=== PATIENT | female | born 1950 | race Caucasian/White ===

== ENCOUNTER 2019-12-04 06:37 | Outpatient (CLI) | payer MEDICARE, SELFPAY ==
--- NOTE | ~2019-12-04 | CT_ITS ---
EXAMINATION: CT abdomen pelvis w con DATE: 12/04/2019 07:18 INDICATION: Right renal cell carcinoma restaging TECHNIQUE: Computed tomography (CT) of the abdomen and pelvis was performed with 100 cc Omnipaque 350 intravenous contrast. Automated exposure control and iterative reconstruction technique were employe d. Exam dose: 732.59 mGy-cm total exam DLP. COMPARISON: 08/23/2018 CT abdomen pelvis FINDINGS: Cardiomegaly. No pericardial or pleural effusion. There is mild discoid atelectasis and/or scarring in the lower lung zones. No consolidation is noted . Small sliding hiatal hernia. Diffuse hepatic steatosis. No hepatic, splenic, pancreatic, adrenal or left renal space occupying ma ss lesion is detected. Status post right nephrectomy; no recurrent mass lesion or lymphadenopathy is detected. No urinary tract calculus or hydroureteronephrosis. There is atherosclerotic calcification of the abdominal aorta and aortic branches. Normal appendix. No bowel obstruction or intraperitoneal free air. Diffuse idiopathic skeletal hyperostosis of the lower thoracic spine. The uterus, adnexal areas and urinary bladder are unremarkable. There is minimal retrolisthesis at L2-3. There is minimal anterolisthesis at L4-5 and L5-S1 due to degenerative change at the apophyseal joint s. Sacral Tarlov cysts. No suspicious osteolytic or osteoblastic lesions are noted. IMPRESSION: Status post right nephrectomy; no recurrent malignancy is evident Cardiomegaly Small sliding hiatal hernia Hepatic steatosis Reviewed, dictated and finalized at [facility]. Reviewed, dictated and finalized at [facility].
[2019-12-04 07:13] LABS: Estimated Glomerular Filt Rate > 60
== END 2019-12-04 06:38 | disposition home or self-care (01) ==
LOC: ANHIMG 06:39
PROVIDERS: PCP Family Medicine; Visit Provider Internal Medicine Medical Oncology
DX: C64.1 Malignant neoplasm of right kidney, except renal pelvis (principal); K44.9 Diaphragmatic hernia without obstruction or gangrene; K76.0 Fatty (change of) liver, not elsewhere classified; I51.7 Cardiomegaly
CPT/HCPCS: 36415; 74177; Q9967

== ENCOUNTER 2020-12-16 08:47 | Outpatient (CLI) | payer MEDICARE, SELFPAY ==
--- NOTE | ~2020-12-16 | CT_ITS ---
EXAMINATION: CT chest abdomen pelvis w con DATE: 12/16/2020 09:28 INDICATION: Restaging of renal cell carcinoma right kidney TECHNIQUE: Computed tomography (CT) of the chest, abdomen, and pelvis was performed with 100 cc Omnip aque 350 intravenous contrast. Automated exposure control and iterative reconstruction technique were employed. Exam dose: 1347.03 mGy-cm total exam DLP. COMPARISON: 12/04/2019 CT abdomen pelvis FINDINGS: CHEST CT: The lungs are clear of infiltrate or consolidation or pulmonary mass lesion. There are occasional are as of mild discoid atelectasis or scarring. Mild cardiomegaly. No thoracic aortic aneurysm. No pericardial or pleural effusion. No hilar or mediastinal or axillary lymphadenopathy. Small sliding hiatal hernia. ABDOMEN/PELVIS CT: The liver, spleen, pancreas are unremarkable. The gallbladder is present. No gallbladder wall thicken ing or pericholecystic fluid or fat stranding is detected. No bile duct or pancreatic duct dilatation . Status post right nephrectomy for history of renal cell cancer. The adrenal glands and left kidney ar e unremarkable. Normal caliber of the abdominal aorta. There is abdominal aortic and prominent proximal left renal ar jeri calcification. No intraperitoneal or retroperitoneal or pelvic mass lesion or adenopathy or asci kush is detected. There is a prominent amount of fecal material within the colon but no bowel obstruction, bowel wall t hickening or pneumatosis or intraperitoneal free air is evident. Normal appendix. Very small fat-containing umbilical hernia. The uterus, adnexal areas and urinary bladder are unremarkable. Diffuse idiopathic skeletal hyperostosis of the thoracic spine. Minimal grade 1 anterolisthesis at L4-5 and L5-S1 due to degenerative change at the apophyseal joints . No suspicious osteolytic or osteoblastic lesions are noted. IMPRESSION: Status post right nephrectomy; no recurrent malignancy or metastatic disease is evident Reviewed, dictated and finalized at [facility]. Reviewed, dictated and finalized at [facility]. IMPRESSION: Status post right nephrectomy; no recurrent malignancy or metastat ic disease is evident
[2020-12-16 09:12] LABS: Estimated Glomerular Filt Rate > 60
== END 2020-12-16 08:48 | disposition home or self-care (01) ==
PROVIDERS: PCP Family Medicine
DX: C64.1 Malignant neoplasm of right kidney, except renal pelvis (principal)
CPT/HCPCS: 71260; 74177; Q9967

== ENCOUNTER 2021-12-19 07:24 | Outpatient (CLI) | payer MEDICARE, SELFPAY ==
--- NOTE | ~2021-12-19 | CT_ITS ---
EXAMINATION: CT chest abdomen pelvis w con DATE: 12/19/2021 07:59 INDICATION: Renal cell carcinoma restaging TECHNIQUE: Computed tomography (CT) of the chest, abdomen, and pelvis was performed with 100 CC Omnip aque 300 intravenous contrast. Automated exposure control and iterative reconstruction technique were employed. Exam dose: 780.29 mGy-cm total exam DLP. COMPARISON: 12/16/2020 CT chest abdomen pelvis FINDINGS: CHEST CT: There is chronic mild discoid scarring at the left apex and both lung bases. No pulmonary infiltrate or consolidation or pulmonary mass lesion is detected. Normal size and homogeneous enhancement of the thyroid gland. No thoracic aortic aneurysm or dissection. No hilar or mediastinal mass lesion or lymphadenopathy. He art size is normal. No pericardial or pleural effusion. ABDOMEN/PELVIS CT: Diffuse hepatic steatosis. No hepatic space-occupying mass lesion. The gallbladder is unremarkable. N o bile duct or pancreatic duct dilatation. No pancreatic mass lesion or calcification. Normal splenic size. Normal morphology of the adrenal glands. Status post right nephrectomy. No abnormal mass is noted in the right nephrectomy bed. No left renal mass lesion or calcification or left hydroureteronephrosis. The urinary bladder, uterus and adnexal areas are unremarkable. There is atherosclerotic calcification of the abdominal aorta and branches including prominent calcif ication at the origin of the left renal artery as well as celiac and superior mesenteric arteries. No intraperitoneal or retroperitoneal or pelvic mass lesion or adenopathy or ascites. There is a prominent of fecal material within the colon. There is retained cecal mesentery with media lly directed cecum overlying the upper mid abdomen, the appendix also overlying the mid abdomen, loca sun beneath the umbilicus. No evidence of appendicitis. No bowel obstruction, bowel wall thickening, pneumatosis or intraperitoneal free air is detected. Small fat-containing umbilical hernia. Prominent degenerative disc disease in the lower cervical spine. Diffuse idiopathic skeletal hyperost osis of the thoracic spine. Degenerative change of the lumbar spine including the lower lumbar apophyseal joints with associated minimal grade 1 anterolisthesis at L4-5. No suspicious osteolytic or osteoblastic lesions. IMPRESSION: Status post right nephrectomy for renal cell carcinoma; no recurrence or metastatic dise ase is detected Reviewed, dictated and finalized at [facility]. Reviewed, dictated and finalized at [facility]. IMPRESSION: Status post right nephrectomy for renal cell carcinoma; no recurre nce or metastatic disease is detected
[2021-12-19 07:53] LABS: Estimated Glomerular Filt Rate > 60
== END 2021-12-19 07:25 | disposition home or self-care (01) ==
PROVIDERS: PCP Family Medicine; Visit Provider Internal Medicine Medical Oncology
DX: C64.1 Malignant neoplasm of right kidney, except renal pelvis (principal); Z90.5 Acquired absence of kidney
CPT/HCPCS: 71260; 74177; Q9967

== ENCOUNTER 2023-01-11 06:34 | Outpatient (CLI) | payer MEDICARE, SELFPAY ==
--- NOTE | ~2023-01-11 | CT_ITS ---
EXAMINATION: CT abdomen pelvis w con DATE: 01/11/2023 07:16 INDICATION: Kidney cancer. TECHNIQUE: Computed tomography (CT) of the abdomen and pelvis was performed with 100 mL Omnipaque 350 intravenous contrast. Automated exposure control and iterative reconstruction technique were employe d. The dose-length product was 926.57 mGy-cm. COMPARISON: CT abdomen and pelvis 12/19/2021 FINDINGS: The visualized portions of the lung bases demonstrate mild atelectasis. No pleural effusion . Cardiomegaly is noted. No pericardial effusion. There is a small sliding hiatal hernia. There is di ffuse hepatic steatosis. The gallbladder, spleen, pancreas, and adrenal glands are normal. There are changes of right nephrectomy. There is a 5 mm cyst in left kidney. There are no dilated loops of halle l. The appendix is normal. There are no pathologically enlarged lymph nodes. There is no free intrape ritoneal fluid. Aortic atherosclerosis is noted. There is mild thoracic and lumbar spondylosis. IMPRESSION: 1. No evidence of metastatic disease. Reviewed, dictated and finalized at [facility].
[2023-01-11 07:12] LABS: Estimated Glomerular Filt Rate > 60
== END 2023-01-11 06:35 | disposition home or self-care (01) ==
PROVIDERS: PCP Family Medicine; Visit Provider Internal Medicine Medical Oncology
DX: C64.1 Malignant neoplasm of right kidney, except renal pelvis (principal)
CPT/HCPCS: 74177; Q9967

== ENCOUNTER 2024-08-01 09:20 | Outpatient (CLI) | payer MEDICARE, SELFPAY ==
[2024-08-01 14:54] LABS: Hemoglobin A1C 5.9 % (<5.7)
== END 2024-08-01 09:21 | disposition home or self-care (01) ==
LOC: ANHGOSHLAB 09:21
PROVIDERS: PCP Internal Medicine; Visit Provider Clinical Nurse Specialist
DX: R73.9 Hyperglycemia, unspecified (principal)
CPT/HCPCS: 36415; 83036

== ENCOUNTER 2025-03-08 13:49 | Outpatient (CLI) | payer MEDICARE, SELFPAY ==
[2025-03-08 18:29] LABS: Alanine Aminotransferase 18 U/L (6-35); Albumin Level 4.4 g/dL (3.5-5.1); Alkaline Phosphatase 58 U/L (38-126); Anion Gap 8 mmol/L (4-12); Aspartate Amino Transferase 34 U/L (14-36); Bilirubin,Total 1.0 mg/dL (0.2-1.3); Blood Urea Nitrogen 19 mg/dL (7-17); Calcium 9.6 mg/dL (8.4-10.2); Carbon Dioxide 27 mmol/L (22-30); Chloride 101 mmol/L (98-107); Cholesterol 267 mg/dL (0-200); Estimated Glomerular Filt Rate > 60; Glucose 107 mg/dL (65-110); HDL Direct 40 mg/dL; Potassium 4.1 mmol/L (3.4-5.0); Sodium 136 mmol/L (137-145); Total Protein 7.5 g/dL (6.3-8.2); Triglycerides 182 mg/dL (<150)
[2025-03-08 18:42] LABS: Hematocrit 41.0 % (37.0-47.0); Hemoglobin 13.8 g/dL (12.0-15.0); Immature Granulocyte Percent A 0.1 % (0-0.5); Lymphocytes Absolute Auto 2.09 K/mm3 (0.9-3.2); Mean Corpuscular HGB Conc 33.7 g/dl (32-36); Mean Corpuscular Hemoglobin 31.4 pg (26-34); Mean Corpuscular Volume 93.4 fl (80-100); Nucleated Red Blood Cells Absolute Auto 0.000 K/mm3 (0.0-0.012); Nucleated Red Blood Cells Perc 0.0 % (0.0-0.2); Platelet Count Result 220 k/mm3 (150-375); Red Blood Count 4.39 M/mm3 (4.2-5.4); White Blood Count 7.4 K/mm3 (4.5-10.0)
[2025-03-08 18:48] LABS: Hemoglobin A1C 5.8 % (<5.7)
[2025-03-08 19:01] LABS: MALB Creatinine Ratio 26.1 mg/g (0-30)
== END 2025-03-08 13:50 | disposition home or self-care (01) ==
LOC: ANHGOSHLAB 13:50
PROVIDERS: PCP Clinical Nurse Specialist; Visit Provider Clinical Nurse Specialist
DX: E11.9 Type 2 diabetes mellitus without complications (principal); I10 Essential (primary) hypertension; E55.9 Vitamin D deficiency, unspecified
CPT/HCPCS: 36415; 80053; 80061; 82043; 82306; 83036; 85025